=== PATIENT | male | born 1995 | race Caucasian/White ===

== ENCOUNTER 2017-05-08 11:40 | Emergency (ER) | payer OTHER ==
[~2017-05-08] VITALS: Ht 177.8 cm; Wt 81.8 kg
[2017-05-08 11:42] VITALS: BP 156/98; PULSE 115; TEMP 98.8
[2017-05-08] MEDS ORDERED: FLAGYL500 MG PO (12:49)
[2017-05-08] MEDS ORDERED: CLEOCIN HCL300 MG PO (12:49)
== END 2017-05-08 13:03 | disposition home or self-care (01) ==
LOC: COL.ER 11:40
DX: S01.512A Laceration without foreign body of oral cavity, initial encounter (principal); Z23 Encounter for immunization; W01.198A Fall on same level from slipping, tripping and stumbling with subsequent striking against other object, initial encounter